=== PATIENT | female | born 1950 | race Caucasian/White ===

== ENCOUNTER → 2016-12-13 | Outpatient (CLI) | payer MEDICARE, MEDICAID ==
[~2016-12-13] MED LIST: AUGMENTIN 500 M1 TAB PO; BACTRIM DS 8001 TAB PO; CAPOTEN50 MG PO; CIPRO500 MG PO; DARVOCET-N6 EACH/PAK PO; GLUCOPHAGE500 MG PO; GLYBURIDE5 MG PO; JANUVIA50 MG PO; LANTUS INS100 UNITS/ SC; LEVAQUIN 500 M500 MG PO; LIPITOR20 M1 PO; LORTAB 5/500 501 TAB PO; NAPROSYN 500MG500 MG PO; PHENERGAN 25MG.25 M1 PO; RANITIDINE HCL150 MG PO; ULTRAM 50 MG TA50 MG PO; VOLTAREN75 MG PO; ZOFRAN4 MG PO
[2016-12-13 10:20] LABS: LYMPH # 1.9 K/mm3 (0.7-4.5); LYMPH % 30.5 % (10-50.0)
[2016-12-13 10:34] LABS: BUN 14 mg/dL (7-18)
[2016-12-13 10:42] LABS: GFR (ESTIMATED) 50 ML/MIN (59-)
[2016-12-13 10:54] LABS: HEMOGLOBIN 11.2 g/dL (12.2-16.2)
--- NOTE | 2016-12-14 09:48 | RADIOLOGY REPORT PS360 ---
[id number] VIEWS HISTORY: RT SHOULDER PAIN,STIFFNESS Patient Age: 66 years: Female Ordering Physician: Chao Schofield MD TECHNIQUE: 3 views of the right shoulder. COMPARISON : AP chest 2013 FINDINGS Glenohumeral joint is intact. Humeral head and neck are intact. AC joint with only very mild degenerative change. There is slight downward sloping of of a long acromion on the frontal projection which conceivably could give contribute to impingement symptoms if present... Bones well mineralized. Right lung apex and upper right ribs satisfactory. IMPRESSION: No acute findings. No fracture nor dislocation The glenohumeral joint well-maintained Minor observations in text
== END ==
LOC: LAB 09:57 → RAD 09:57
PROVIDERS: Internal Medicine
DX: E11.22 Type 2 diabetes mellitus with diabetic chronic kidney disease (principal); R80.1 Persistent proteinuria, unspecified; I10 Essential (primary) hypertension; N18.3 Chronic kidney disease, stage 3 (moderate); E03.9 Hypothyroidism, unspecified; M25.511 Pain in right shoulder

== ENCOUNTER → 2017-03-15 | Outpatient (CLI) | payer MEDICARE, MEDICAID ==
[2017-03-15 13:40] LABS: BUN 21 mg/dL (7-18)
[2017-03-15 13:42] LABS: GFR (ESTIMATED) 45 ML/MIN (59-)
== END ==
LOC: LAB 12:03
PROVIDERS: Internal Medicine
DX: E11.42 Type 2 diabetes mellitus with diabetic polyneuropathy (principal); E11.22 Type 2 diabetes mellitus with diabetic chronic kidney disease; I10 Essential (primary) hypertension; N18.3 Chronic kidney disease, stage 3 (moderate); R80.1 Persistent proteinuria, unspecified